=== PATIENT | male | born 1965 | race Caucasian/White ===

== ENCOUNTER → 2017-02-28 | Outpatient (CLI) | payer OTHER ==
[~2017-02-28] MED LIST: 1-ME1LIQ PO; AMLO10TA2 PO; ATOR40TA16 PO; HYDR12.57 PO; LOSA50TA PO; NAPR250T PO
[2017-02-28 12:35] LABS: ANION GAP 8 MEQ/L (5-15); AST (GOT) 17 U/L (15-37); BICARBONATE 27.6 MEQ/L (21.0-32.0); BLOOD UREA NITROGEN 13 MG/DL (7-18); CHLORIDE 105 MEQ/L (98-107); GLOMERULAR FILTRATION RATE 70 ML/MIN (>89); GLUCOSE,FASTING 85 MG/DL (74-99); POTASSIUM 3.8 MEQ/L (3.5-5.1); SODIUM (NA) 141 MEQ/L (136-145)
[2017-02-28 12:40] LABS: ALKALINE PHOSPHATASE 103 U/L (45-117); ALT (GPT) 31 U/L (12-78); HDL CHOLESTEROL 52.7 MG/DL (40.0-60.0); LDL CHOLESTEROL 121 MG/DL (0-99); TOTAL BILIRUBIN ADULT 0.3 MG/DL (0.2-1.0)
== END ==
LOC: PLAB 10:27
PROVIDERS: ATTEND Family Medicine
DX: E78.5 Hyperlipidemia, unspecified (principal)
CPT/HCPCS: 36415; 80053; 80061

== ENCOUNTER 2017-10-20 08:50 | Emergency (ER) | payer SELFPAY ==
[~2017-10-20] VITALS: Ht 185.4 cm; Wt 80.0 kg
[~2017-10-20 08:50] MED LIST changes: -NAPR250T PO; +NAPR250T4 PO
[2017-10-20 08:54] VITALS: BP 253/129; PULSE 67; RESP 16; TEMP 98.1; O2SAT 99
--- NOTE | 2017-10-20 09:03 | PD ---
HPI Chief Complaint: Injury Time Seen by Provider: 09:02 Travel History International Travel<30 days: No Contact w/Intl Traveler<30days: No Traveled to known affect area: No History of Present Illness HPI 52-year-old male came to the emergency room with history of left-sided chest pain that sounds mostly musculoskeletal in origin. Patient says that he fell Tuesday and landed on a bedside table. He had pain almost soon after that. Patient tried to take care of the pain at home by taking some Advil. However it has not gotten better and his friends recommended that he should come in since he could have a risk of puncturing his lung. Patient says the pain is worse when he takes a deep breath. It's tender to touch. Patient also has history of hypertension but lost his physician 2 months ago and took his last dose of medication then. His blood pressure was extremely high when he arrived in triage. Patient denies of any headache or blurred vision. No radiation of the pain. No associated symptoms like shortness of breath, fever, cough or hemoptysis. [facility] Past Medical History Narrative Medical List of his past medical, surgical, social and family history is reviewed from the nursing note. Cancer: No Cardiovascular Problems: No Diminished Hearing: No Endocrine: No Genitourinary: No Immune Disorder: No Musculoskeletal: No Neurologic: No Psychiatric: No Reproductive: No Respiratory: No Social History Alcohol Use: Yes ( STATES 18 BEERS PER WK) Tobacco Use: Yes (1PPD) Substance Use: No Allergies-Medications (Allergen,Severity, Reaction): Coded Allergies: No Known Allergies (Verified Allergy, Unknown, 10/20/17) Comments No known drug allergies. Reported Meds & Prescriptions Reported Meds & Active Scripts Active Ibuprofen 600 Mg Tab 600 Mg PO Q6H PRN Losartan (Losartan Potassium) 50 Mg Tab 50 Mg PO BID Hydrochlorothiazide 12.5 Mg Cap 12.5 Mg PO DAILY Narrative Medication List of his home medications reviewed from the nursing note. Review of Systems Except as stated in HPI: all other systems reviewed are Neg Cardiovascular: Positive: Chest Pain or Discomfort Musculoskeletal: Positive: Pain Physical Exam Narrative GENERAL: Awake, alert, moderate distress SKIN: Focused skin assessment warm/dry. HEAD: Atraumatic. Normocephalic. EYES: Pupils equal and round. No scleral icterus. No injection or drainage. 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 Mucous membranes pink and moist. NECK: Trachea midline. No JVD. CARDIOVASCULAR: Regular rate and rhythm. No murmur appreciated. RESPIRATORY: No accessory muscle use. Clear to auscultation. Breath sounds equal bilaterally. Point tenderness at 10 and 11 ribs on the left side. GASTROINTESTINAL: Abdomen soft, non-tender, nondistended. Hepatic and splenic margins not palpable. MUSCULOSKELETAL: No obvious deformities. No clubbing. No cyanosis. No edema. NEUROLOGICAL: Awake and alert. No obvious cranial nerve deficits. Motor grossly within normal limits. Normal speech. PSYCHIATRIC: Appropriate mood and affect; insight and judgment normal. Data Data Last Documented VS Vital Signs Date Time Temp Pulse Resp B/P (MAP) Pulse Ox O2 Delivery O2 Flow Rate FiO2 10/20/17 11:40 211/122 (151) 10/20/17 09:20 Room Air 10/20/17 08:54 98.1 67 16 99 Orders Orders Ribs, Bilat(W/Exp Cxr-Min 4vw) (10/20/17 ) Losartan (Cozaar) (10/20/17 09:15) Clonidine (Catapres) (10/20/17 09:15) Electrocardiogram (10/20/17 ) Dye[employer] Worker / Telemetry [id number] (10/20/17 09:07) Ketorolac Inj (Toradol Inj) (10/20/17 10:15) Ed Discharge Order (10/20/17 11:15) [facility] Medical Decision Making Medical Screen Exam Complete: Yes Emergency Medical Condition: Yes Medical Record Reviewed: Yes Interpretation(s) Twelve-lead EKG was reviewed by me. Normal sinus rhythm, normal axis, nonspecific ST T wave changes, sinus bradycardia. Heart rate of 57 bpm. Differential Diagnosis Rib fracture, muscular skeletal pain, pneumothorax Narrative Course 10:11 AM x-ray series was done with chest x-ray which did not show any pneumothorax or rib fracture as per the radiologist. He was given initially losartan and clonidine to get his blood pressure lowered. I have also ordered IM Toradol for his pain. Blood pressure will be rechecked. 11:12 AM his repeat blood pressure at this point is 211 systolic. It has come down from his initial blood pressure which was 255. Patient remains asymptomatic. I'm comfortable discharging him home. Procedures EKG Prior to Arrival: No Diagnosis Primary Impression: Contusion of rib on left side Qualified Codes: S20.212A - Contusion of left front wall of thorax, initial encounter Additional Impressions: Uncontrolled hypertension History of medication noncompliance Referrals: [facility] 1 week Additional Instructions: Return to ER if condition worsens or any other new concerns. Please refill the prescriptions for your high blood pressure. Her blood pressure was very high when you came to the emergency room. He should be continuously under treatment. Uncontrolled blood pressure like this is extremely dangerous and could lead to stroke, heart attack, irreversible eye or kidney damage. Follow- up with the primary care or the walk-in clinic who is name and information that is provided to you on this discharge paper. Med/Other Pt SpecificInfo: Prescription(s) given Scripts Ibuprofen (Ibuprofen) 600 Mg Tab 600 MG PO Q6H Y for Pain/Inflammation, #40 TAB 0 Refills Prov: Daiana Loaiza MD 10/20/17 Losartan (Losartan) 50 Mg Tab 50 MG PO BID for Blood Pressure Management, #60 TAB 4 Refills Prov: Daiana Loaiza MD 10/20/17 Hydrochlorothiazide (Hydrochlorothiazide) 12.5 Mg Cap 12.5 MG PO DAILY, #30 CAP 4 Refills Prov: Daiana Loaiza MD 10/20/17 Disposition: 01 DISCHARGE HOME Condition: Stable Daiana Loaiza MD Oct 20, 2017 09:03
[2017-10-20] MEDS ORDERED: cloNIDine HCL 0.1 MG TAB PO ONE (09:15)
[2017-10-20] MEDS ORDERED: LOSARTAN 50 MG TAB PO ONE (09:15)
--- NOTE | 2017-10-20 09:35 | RADRPT ---
EXAM DATE/TIME: 10/20/2017 09:12 [place] COMPARISON: No previous studies available for comparison. INDICATIONS : Left lateral chest/rib pain post fall onto nightstand. MEDICAL HISTORY : Hypertension. Smoker. SURGICAL HISTORY : None. ENCOUNTER: Initial ACUITY: 3 days PAIN SCORE: 8/10 LOCATION: Left lateral ribs FINDINGS: Multiple views of both ribs were performed. There is no evidence of displaced fracture. No destruct kelin lesions or areas of periosteal thickening are seen. Expiratory view of the chest is negative for pneumothorax. The mediastinal structures are midline. CONCLUSION: No acute disease. No evidence of displaced rib fracture. Sukhwinder Chairez MD on October 20, 2017 at 9:32 Board Certified Radiologist. This report was verified electronically.
[2017-10-20 10:07] VITALS: BP 223/132
[2017-10-20] MEDS ORDERED: KETOROLAC TROMETHAMINE 60 MG/2 ML (IM) VIAL IM ONE (10:15)
[2017-10-20 10:41] VITALS: BP 216/125
[2017-10-20] MEDS ORDERED: IBUP-232 PO (11:15)
[2017-10-20] MEDS ORDERED: HYDR12.57 PO (11:15)
[2017-10-20] MEDS ORDERED: LOSA50TA PO (11:15)
[2017-10-20 11:40] VITALS: BP 211/122
--- NOTE | 2017-10-20 14:34 | EKG ---
Date Performed: 10/20/2017 Time Performed: 09:13:57 PTAGE: 52 years EKG: SINUS BRADYCARDIA NONSPECIFIC ST & T-WAVE ABNORMALITY PROLONGED QT INTERVAL ABNORMAL ECG NO PREVIOUS TRACING DOCTOR: Tone Orat Interpretating Date/Time 10/20/2017 14:29:23
== END 2017-10-20 11:42 | disposition home or self-care (01) ==
LOC: PHED 08:50
DX: S20.212A Contusion of left front wall of thorax, initial encounter (principal); I10 Essential (primary) hypertension; F17.210 Nicotine dependence, cigarettes, uncomplicated; W18.30XA Fall on same level, unspecified, initial encounter; W22.8XXA Striking against or struck by other objects, initial encounter; Z91.14 Patient's other noncompliance with medication regimen; Z79.899 Other long term (current) drug therapy
CPT/HCPCS: 71111; 93005; 96372; 99284; J1885